=== PATIENT | male | born 1945 | race Caucasian/White ===

== ENCOUNTER 2017-01-30 07:59 | Day surgery (SDC) | payer MEDICARE ==
[~2017-01-30] VITALS: Ht 180.3 cm; Wt 114.2 kg
[2017-01-30] MEDS ORDERED: MIDAZOLAM 1 MG/ML, 2ML ONE (08:15)
[2017-01-30] MEDS ORDERED: FENTANYL PF 100 MCG/2ML ONE (08:15)
[2017-01-30 08:23] VITALS: BP 124/77
[2017-01-30] MEDS ORDERED: PROPOFOL 10 MG/ML, 20ML ONE (09:08)
[2017-01-30] MEDS ORDERED: FLUT1DIS IH (09:16)
[2017-01-30] MEDS ORDERED: FENO160T PO (09:16)
[2017-01-30] MEDS ORDERED: albuteral inhaler INH (09:16)
[2017-01-30] MEDS ORDERED: TERA1CAP3 PO (09:16)
[2017-01-30] MEDS ORDERED: OMEP-110 PO (09:16)
[2017-01-30] MEDS ORDERED: CELE200C PO (09:16)
[2017-01-30] MEDS ORDERED: MONT10TA9 PO (09:16)
[2017-01-30] MEDS ORDERED: ZOLP10TA5 PO (09:16)
[2017-01-30] MEDS ORDERED: morphine SULFATE 10 MG/ML, 1ML IV PRN (09:30)
[2017-01-30] MEDS ORDERED: ACETAMINOPHEN 325 MG TABLET PO PRN (09:30)
[2017-01-30] MEDS ORDERED: OXYcodone 5 MG/5 ML ORAL.SOL UDC PO PRN (09:30)
[2017-01-30] MEDS ORDERED: FENTANYL PF 100 MCG/2ML IV PRN (09:30)
[2017-01-30] MEDS ORDERED: ONDANSETRON 2MG/ML, 2ML IVPush PRN (09:30)
[2017-01-30] MEDS ORDERED: HORS300C PO (09:38)
[2017-01-30] MEDS ORDERED: ENZY1CAP PO (09:38)
[2017-01-30] MEDS ORDERED: PROSTATE PLUS PO (09:38)
[2017-01-30] MEDS ORDERED: CALC480G PO (09:38)
[2017-01-30] MEDS ORDERED: 5-HY100C3 PO (09:38)
[2017-01-30] MEDS ORDERED: [UNRECOGNIZED DRUG - OTHER] PO (09:38)
[2017-01-30] MEDS ORDERED: METH500C3 PO (09:38)
[2017-01-30] MEDS ORDERED: [UNRECOGNIZED DRUG - OTHER] PO (09:38)
[2017-01-30] MEDS ORDERED: GLUC1TAB55 PO (09:38)
[2017-01-30] MEDS ORDERED: [UNRECOGNIZED DRUG - OTHER] PO (09:38)
[2017-01-30] MEDS ORDERED: SAM E PO (09:38)
[2017-01-30] MEDS ORDERED: CHOL2000 PO (09:38)
[2017-01-30] MEDS ORDERED: BIOT25005 PO (09:38)
[2017-01-30] MEDS ORDERED: CETI10TA18 PO (09:38)
[2017-01-30] MEDS ORDERED: [UNRECOGNIZED DRUG - OTHER] PO (09:38)
[2017-01-30] MEDS ORDERED: L.AC1CAP6 PO (09:38)
[2017-01-30] MEDS ORDERED: [UNRECOGNIZED DRUG - OTHER] PO (09:38)
[2017-01-30] MEDS ORDERED: AMBROTOSE PO (09:38)
[2017-01-30] MEDS ORDERED: LACTATED RINGERS 1,000 ML IV SCH (11:25)
== END 2017-01-30 11:45 ==
LOC: OUT 07:59
PROVIDERS: ATTEND Specialist
DX: Z12.11 Encounter for screening for malignant neoplasm of colon (principal); K22.2 Esophageal obstruction; D12.2 Benign neoplasm of ascending colon; K57.30 Diverticulosis of large intestine without perforation or abscess without bleeding; K63.5 Polyp of colon; K52.89 Other specified noninfective gastroenteritis and colitis; K21.9 Gastro-esophageal reflux disease without esophagitis; J44.9 Chronic obstructive pulmonary disease, unspecified; M19.90 Unspecified osteoarthritis, unspecified site; F10.21 Alcohol dependence, in remission; Z85.118 Personal history of other malignant neoplasm of bronchus and lung; Z88.8 Allergy status to other drugs, medicaments and biological substances; Z98.0 Intestinal bypass and anastomosis status; Z79.899 Other long term (current) drug therapy; Z90.49 Acquired absence of other specified parts of digestive tract; Z93.3 Colostomy status; Z98.890 Other specified postprocedural states
CPT/HCPCS: 43248; 45380; 88305; 93005; J2250; J2704; J3010; J7120

== ENCOUNTER 2018-02-19 12:52 | Emergency (ER) | payer MEDICARE ==
[~2018-02-19] VITALS: Ht 182.9 cm; Wt 114.5 kg
[~2018-02-19 12:52] MED LIST: 5-HY100C3 PO; AMBROTOSE PO; BIOT25005 PO; CALC480G PO; CELE200C PO; CETI10TA18 PO; CHOL2000 PO; ENZY1CAP PO; FENO160T PO; FLUT1DIS IH; GLUC1TAB55 PO; HORS300C PO; L.AC1CAP6 PO; METH500C3 PO; MONT10TA9 PO; OMEP-110 PO; PROSTATE PLUS PO; SAM E PO; TERA1CAP3 PO; ZOLP10TA5 PO; [UNRECOGNIZED DRUG - OTHER] PO; [UNRECOGNIZED DRUG - OTHER] PO; [UNRECOGNIZED DRUG - OTHER] PO; [UNRECOGNIZED DRUG - OTHER] PO; [UNRECOGNIZED DRUG - OTHER] PO; albuteral inhaler INH
[2018-02-19 14:27] LABS: BASOPHILS % (AUTO) 0 % (0-1); EOSINOPHILS # (AUTO) 0.09 x10^3/uL (0-0.4); EOSINOPHILS % (AUTO) 1 % (1-7); LYMPHOCYTES # (AUTO) 0.49 x10^3/uL (1-3.4); LYMPHOCYTES % (AUTO) 5 % (22-44); MD NO; MEAN CORPUSCULAR HEMOGLOBIN 33.3 pg (27.5-34.5); MEAN CORPUSCULAR HGB CONC 34.2 g/dL (33.2-36.2); MEAN CORPUSCULAR VOLUME 97.3 fL (81-97); MONOCYTES # (AUTO) 0.28 x10^3/uL (0.2-0.8); MONOCYTES % (AUTO) 3 % (2-9); NEUTROPHILS # (AUTO) 8.97 x10^3/uL (1.8-6.8); NEUTROPHILS % (AUTO) 91 % (42-75); PLATELET COUNT 191 x10^3/uL (130-400); RED BLOOD COUNT 5.22 x10^6/uL (4.38-5.82); RED CELL DISTRIBUTION WIDTH 13.6 % (9.4-14.8)
[2018-02-19 14:42] LABS: ALBUMIN 3.7 g/dL (3.4-5.0); ANION GAP 10 mmol/L (5-15); CHLORIDE 111 mmol/L (98-107)
[2018-02-19 14:47] LABS: ALANINE AMINOTRANSFERASE 46 U/L (12-78); ALKALINE PHOSPHATASE 38 U/L (45-117); BILIRUBIN,TOTAL 0.6 mg/dL (0.2-1.0); CREATININE 1.22 mg/dL (0.7-1.3); TOTAL PROTEIN 7.4 g/dL (6.4-8.2)
[2018-02-19] MEDS ORDERED: OMNIPAQUE 350 MG/ML, 150 ML BOTTLE ONE (15:38)
[2018-02-19] MEDS ORDERED: ALBU6.7H INH (15:39)
[2018-02-19 16:51] LABS: CULTURE INDICATED? NO; MICROSCOPIC NOT IND
[2018-02-19 17:50] VITALS: BP 114/78
== END 2018-02-19 17:50 | disposition home or self-care (01) ==
LOC: ED 17:40
DX: N20.1 Calculus of ureter (principal); Z90.49 Acquired absence of other specified parts of digestive tract
CPT/HCPCS: 36415; 71275; 74021; 74177; 80053; 81003; 83605; 83690; 85025; 99285; Q9967